=== PATIENT | male | born 1980 | race Two or more races ===

== ENCOUNTER → 2021-01-05 | Outpatient (CLI) | payer OTHER | END | disposition home or self-care (01) | LOC: PPH VACUNA → EDBD 01-06 06:45 → PPH VACUNA 01-26 06:46 | DX: Z23 Encounter for immunization (principal) ==

== ENCOUNTER → 2021-01-27 17:28 | Outpatient (CLI) | payer OTHER | END | disposition home or self-care (01) | LOC: EDBD 17:28 → PPH VACUNA 17:28 | DX: Z23 Encounter for immunization (principal) ==

== ENCOUNTER 2023-10-14 14:26 | Emergency (ER) | payer OTHER ==
[~2023-10-14] VITALS: Ht 167.6 cm; Wt 84.8 kg
[2023-10-14 16:23] LABS: HEMATOCRIT 44.2 % (39.0-48.0); HEMOGLOBIN 14.6 g/dL (13-16.00); MEAN CELL VOLUME 82.5 fL (80.0-100.00); MEAN CORPUSCULAR HEMOGLOBIN 27.3 pg (27.00-32.0); MEAN CORPUSCULAR HGB CONC 33.1 g/dl (32.0-36.0); PLATELET COUNT 154 K/uL (150-450); RED BLOOD COUNT 5.36 M/uL (4.00-6.00)
== END 2023-10-14 17:52 | disposition home or self-care (01) ==
LOC: ER 14:26
PROVIDERS: General Practice
DX: B34.9 Viral infection, unspecified (principal); R53.81 Other malaise; Z20.822 Contact with and (suspected) exposure to COVID-19